=== PATIENT | female | born 2000 | race Caucasian/White ===

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

== ENCOUNTER 2021-11-07 11:36 | Emergency (ER) | payer MEDICAID ==
[2021-11-07] MEDS ORDERED: Dexamethasone 4 MG TAB ONE (13:39)
[2021-11-07] MEDS ORDERED: Dexamethasone 10 MG/ML VIAL ONE (13:42)
== END 2021-11-07 13:47 | disposition home or self-care (01) ==
LOC: ERS 11:36
DX: J02.9 Acute pharyngitis, unspecified (principal)
CPT/HCPCS: 87081; 87430; 99283; J1100; J8540

== ENCOUNTER 2022-03-20 12:13 | Emergency (ER) | payer MEDICAID ==
[2022-03-20] MEDS ORDERED: Lidocaine 2% PF 5 ML VIAL ONE (13:00)
[2022-03-20] MEDS ORDERED: Fentanyl 100 MCG/2 ML VIAL ONE (13:00)
[2022-03-20] MEDS ORDERED: Lorazepam 2 MG/ML VIAL ONE (13:01)
[2022-03-20 13:22] LABS: BHCG - Serum Negative (NEGATIVE); Pregs Control Background? CLEAR/WHITE (CLR/WHITE); Pregs Control Bar Appear? YES (CONTROL BAR)
== END 2022-03-20 14:21 | disposition home or self-care (01) ==
LOC: ERS 12:13
DX: N75.1 Abscess of Bartholin's gland (principal)
CPT/HCPCS: 56420; 84703; 87070; 87076; 87205; 96374; 96375; J2001; J2060; J3010